=== PATIENT | female | born 1975 | race Caucasian/White ===

== ENCOUNTER 2018-03-01 22:12 | Inpatient (IN) | payer MEDICAID ==
[2018-03-01] MEDS ORDERED: MISOPROSTOL 200 MCG TAB PR (23:00)
[2018-03-01] MEDS ORDERED: LIDOCAINE 1% (MPF) 30 ML INJ INJ (23:00)
[2018-03-01] MEDS ORDERED: CARBOPROST 250 MCG INJ IM (23:00)
[2018-03-01] MEDS ORDERED: METHYLERGONOVINE 0.2 MG INJ IM (23:00)
[2018-03-01] MEDS ORDERED: OXYTOCIN 30 UNITS/LR 500 ML IV (23:00)
[2018-03-01] MEDS ORDERED: IBUPROFEN 600 MG TAB PO (23:00)
[2018-03-01] MEDS ORDERED: BUTORPHANOL 2 MG INJ IV (23:00)
[2018-03-02] MEDS: LACTATED RINGER'S 1,000 ML IV* ×3 (00:03→07:46)
[2018-03-02 00:17] LABS: ADD MAN DIFF? NO
[2018-03-02 00:30] LABS: WHITE BLOOD COUNT 8.4 10^3/ul (4.8-10.8)
[2018-03-02 00:30] LABS: BASOPHILS % 0.2 % (0.0-2.0); EOSINOPHILS # 0.1 10^3/ul (0.0-0.5); HEMATOCRIT 30.6 % (37.0-47.0); HEMOGLOBIN 9.9 g/dl (12.0-16.0); LYMPHOCYTES % 24.1 % (15.0-51.0); MEAN CORPUSCULAR HEMOGLOBIN 29.6 pg (29.0-33.0); MEAN CORPUSCULAR HGB CONC 32.4 g/dl (32.0-37.0); MEAN CORPUSCULAR VOLUME 91.3 fl (82.0-101.0); MEAN PLATELET VOLUME 12.9 fl (7.4-10.4); MONOCYTE # 0.7 10^3/ul (0.3-0.9); MONOCYTES % 8.6 % (0.0-11.0); NEUTROPHIL # 5.5 10^3/ul (1.6-7.5); NEUTROPHILS % 65.5 % (39.0-77.0); PLATELET COUNT 189 10^3/UL (140-415); RED BLOOD COUNT 3.35 10^6/ul (4.20-5.40); RED CELL DISTRIBUTION WIDTH 13.5 % (11.5-14.5)
[2018-03-02 00:46] LABS: INR 0.81; PROTIME 11.2 Sec (11.9-14.9); PT RATIO 0.9
[2018-03-02] MEDS: FAMOTIDINE 20 MG INJ IV (00:54)
[2018-03-02 00:55] LABS: ALANINE AMINOTRANSFERASE 21 IU/L (13-69); ALBUMIN 2.9 g/dl (3.3-4.9); ALBUMIN/GLOBULIN RATIO 0.96; ALKALINE PHOSPHATASE 140 IU/L (42-121); ANION GAP 11 (5-13); ASPARTATE AMINO TRANSFERASE 25 IU/L (15-46); BILIRUBIN,INDIRECT 1.1 mg/dl (0-1.1); BILIRUBIN,TOTAL 1.1 mg/dl (0.2-1.3); BLOOD UREA NITROGEN 13 mg/dl (7-20); CALCIUM 9.7 mg/dl (8.4-10.2); CARBON DIOXIDE 21 mmol/L (21-31); CHLORIDE 107 mmol/L (97-110); CREATININE 0.67 mg/dl (0.44-1.00); Estimated GFR > 60 mL/min (>60); GLUCOSE 89 mg/dl (70-220); POTASSIUM 4.2 mmol/L (3.5-5.1); SODIUM 139 mmol/L (135-144); TOTAL PROTEIN 5.9 g/dl (6.1-8.1)
[2018-03-02 01:24] LABS: HEPATITIS B SURFACE ANTIGEN NEGATIVE (NEGATIVE)
[2018-03-02] MEDS: LACTATED RINGER'S 1,000 ML IV (02:48)
[2018-03-02] MEDS ORDERED: DIPHENHYDRAMINE 50 MG INJ IV (04:00)
[2018-03-02] MEDS ORDERED: MINERAL OIL LIGHT 10 ML VIAL TOP (04:00)
[2018-03-02] MEDS ORDERED: LIDOCAINE 0.5% (SDV) 50 ML INJ INJ (04:00)
[2018-03-02] MEDS ORDERED: NALOXONE (0.4 MG/ML) INJ IV (04:00)
[2018-03-02] MEDS ORDERED: ONDANSETRON 4 MG INJ IV ×2 (04:00→12:30)
[2018-03-02] MEDS: FENTAnyl 2MCG/ML-ROPIV 0.2% 100 ML BAG EPI (04:22)
[2018-03-02] MEDS ORDERED: AMPICILLIN 2 GM/NS (PMX) 100 ML (08:49)
[2018-03-02] MEDS: AMPICILLIN 2 GM/NS (PMX) 100 ML IVPB (08:53)
[2018-03-02] MEDS: OXYTOCIN 30 UNITS/LR 500 ML IV ×3 (10:13→18:07)
[2018-03-02] MEDS ORDERED: OXYCODONE/ASPIRIN (4.88/325) TAB PO (12:30)
[2018-03-02] MEDS ORDERED: DIBUCAINE 1% 30 GM OINT PR (12:30)
[2018-03-02] MEDS ORDERED: ACETAMINOPHEN 325 MG TAB PO (12:30)
[2018-03-02] MEDS ORDERED: HYDROCODONE/APAP (5/325) TAB PO ×2 (12:30)
[2018-03-02] MEDS: WITCH HAZEL/GLYCERIN PAD PR (13:21)
[2018-03-02] MEDS: BENZOCAINE 20% 56 ML SPRAY TOP (13:21)
[2018-03-02] MEDS: LANOLIN 7 GM TUBE TOP (13:21)
[2018-03-02] MEDS: OXYCODONE/ASPIRIN (4.88/325) TAB PO (13:21)
[2018-03-02 16:15] LABS: RAPID PLASMA REAGIN NONREACTIVE (NR)
[2018-03-02] MEDS: IBUPROFEN 600 MG TAB PO (18:04)
[2018-03-02] MEDS: SENNA/DOCUSATE NA (8.6MG/50MG) TAB PO (21:06)
[2018-03-03] MEDS: IBUPROFEN 600 MG TAB PO ×5 (00:04→23:38)
[2018-03-03 06:18] LABS: ADD MAN DIFF? NO
[2018-03-03 06:26] LABS: WHITE BLOOD COUNT 12.5 10^3/ul (4.8-10.8)
[2018-03-03 06:26] LABS: ABNORMAL IP MESSAGE 1; BASOPHILS % 0.2 % (0.0-2.0); EOSINOPHILS # 0.2 10^3/ul (0.0-0.5); EOSINOPHILS % 1.7 % (0.0-7.0); HEMATOCRIT 30.2 % (37.0-47.0); HEMOGLOBIN 9.8 g/dl (12.0-16.0); LYMPHOCYTES # 1.9 10^3/ul (0.8-2.9); LYMPHOCYTES % 14.9 % (15.0-51.0); MEAN CORPUSCULAR HEMOGLOBIN 29.9 pg (29.0-33.0); MEAN CORPUSCULAR HGB CONC 32.5 g/dl (32.0-37.0); MEAN CORPUSCULAR VOLUME 92.1 fl (82.0-101.0); MEAN PLATELET VOLUME 13.2 fl (7.4-10.4); MONOCYTE # 0.7 10^3/ul (0.3-0.9); MONOCYTES % 5.4 % (0.0-11.0); NEUTROPHIL # 9.7 10^3/ul (1.6-7.5); NEUTROPHILS % 77.2 % (39.0-77.0); PLATELET COUNT 172 10^3/UL (140-415); RED BLOOD COUNT 3.28 10^6/ul (4.20-5.40); RED CELL DISTRIBUTION WIDTH 13.3 % (11.5-14.5)
[2018-03-03 06:45] LABS: POSITIVE DIFF @See below
[2018-03-03] MEDS: SENNA/DOCUSATE NA (8.6MG/50MG) TAB PO ×2 (09:28→21:42)
[2018-03-04] MEDS: IBUPROFEN 600 MG TAB PO ×2 (05:25→11:58)
[2018-03-04] MEDS: MEASLES,MUMPS,RUBELLA VACCINE INJ SC* (09:00)
[2018-03-04] MEDS: SENNA/DOCUSATE NA (8.6MG/50MG) TAB PO (09:22)
== END 2018-03-04 16:30 | disposition home or self-care (01) | DRG 807 ==
LOC: OBT 22:12 → PP1 03-02 12:28 → L-D 22:15 → OBT 22:50 → L-D 22:50
PROVIDERS: Obstetrics & Gynecology
PROC: 10E0XZZ Delivery of Products of Conception, External Approach (ICD-10-PCS; principal; 2018-03-02)
PROC: 0HQ9XZZ Repair Perineum Skin, External Approach (ICD-10-PCS; 2018-03-02)
DX: O42.92 Full-term premature rupture of membranes, unspecified as to length of time between rupture and onset of labor (principal); O69.81X0 Labor and delivery complicated by cord around neck, without compression, not applicable or unspecified; O70.0 First degree perineal laceration during delivery; Z3A.39 39 weeks gestation of pregnancy; Z37.0 Single live birth
CPT/HCPCS: 62319; 80053; 84560; 85025; 85610; 85730; 86592; 86850; 86900; 86901; 87340; 99464